=== PATIENT | female | born 1990 | race Caucasian/White ===

== ENCOUNTER 2016-12-13 19:02 | Emergency (ER) | payer OTHER ==
[~2016-12-13] VITALS: Ht 162.6 cm; Wt 49.6 kg
[~2016-12-13 19:02] MED LIST: AMITRIPTYLINE H25 MG PO; AMOXICILLIN500 MG; BENTYL10 MG PO; CARAFATE100 MG/ML; COLD MULTI SYM PO; DEPO-PROVER150 MG/ML IM; DICYCLOMINE HCL20 MG PO; DILAUDID2 MG PO; FLEXERIL5 MG PO; GRALISE300 MG PO; HYDROCODON-ACE1 EACH; IBUPROFEN800 MG; IBUPROFEN800 MG PO; INDOCIN25 MG PO; LYRICA150 MG PO; MIRALAX255 GM PO; OPANA ER10 MG PO; PERCOCET 10/1 TABLET PO; PERCOCET 5/31 TABLET PO; PREDNISONE20 MG PO; PRENATAL TABLE1 EAC3 PO; PRENATAL1 EACH PO; RANITIDINE HCL300 MG PO; REGLAN10 MG PO; VALIUM5 MG PO; VENTOLIN HFA18 GM IH; VICODIN,LORT1 TABLET PO; ZITHROMAX Z-PA250 MG PO; ZOFRAN4 MG PO
[2016-12-13 20:21] LABS: HEMATOCRIT 44.3 % (36.0-46.0); MCH 28.7 PG (29.0-34.0); MCHC 33.6 G/DL (30.0-36.0); MCV 85.4 FL (83-99); MEAN PLAT.VOLUME 12.2 uM^3 (9.5-12.4); PLATELET COUNT 250 K/uL (156-360); RBC DIS.WIDTH-CV 14.5 % (11.8-14.6); RBC DIS.WIDTH-SD 44.8 % (39-53); RED BLOOD COUNT 5.19 M/uL (3.80-5.20); WHITE BLOOD COUNT 10.9 K/uL (4.1-10.2)
[2016-12-13 20:32] LABS: CHLORIDE 104 mEq/L (99-109); POTASSIUM 4.3 mEq/L (3.7-5.4); SODIUM 141 mEq/L (136-147)
[2016-12-13 20:35] LABS: GLUCOSE 99 mg/dL (70-99)
[2016-12-13 20:36] LABS: ANION GAP 11 MEQ/L (2-14); TOTAL BILIRUBIN 0.3 mg/dL (0.0-1.0)
[2016-12-13 20:38] LABS: ALKALINE PHOSPHATASE 64 IU/L (3-129); GFR ESTIMATE (CALCULATED) > 59 mL/min/
[2016-12-13 20:39] LABS: UREA NITROGEN (BUN) 9 mg/dL (9-23)
[2016-12-13 20:48] LABS: QUANTITATIVE HCG < 4.0 MIU/ML
[2016-12-13 22:48] LABS: ADD MIUA? YES; BILIRUBIN NEGATIVE; BLOOD NEGATIVE; COLOR YELLOW ((YELLOW)); GLUCOSE (STRIP) NEGATIVE; KETONES NEGATIVE; LEUKOCYTES NEGATIVE; NITRITE NEGATIVE; PH, URINE 6.5 (5-8); PROTEIN (STRIP) NEGATIVE; SPECIFIC GRAVITY 1.025 (1.000-1.030)
[2016-12-13 23:32] LABS: LIPASE 41 U/L (1.0-51.0)
[2016-12-13 23:44] LABS: CASTS NONE SEEN /LPF; EPITHELIAL CELLS 4+; MUCUS 4+
[2016-12-13 23:47] LABS: BACTERIA 4+; CRYSTALS NONE SEEN; RED BLOOD CELLS NONE SEEN /HPF (0-5); UCUL ADDED? YES; WHITE BLOOD CELLS 0-5 /HPF (0-5)
[2016-12-14] MEDS ORDERED: MIRALAX255 GM PO (00:50)
[2016-12-14] MEDS ORDERED: BENTYL20 MG PO (00:54)
[2016-12-14 01:37] VITALS: BP 104/67
== END 2016-12-14 01:39 | disposition home or self-care (01) ==
LOC: RME 19:02 → EME 19:02 → RME 12-14 01:39
DX: K59.00 Constipation, unspecified (principal); R10.9 Unspecified abdominal pain; G89.29 Other chronic pain; F17.200 Nicotine dependence, unspecified, uncomplicated
CPT/HCPCS: 74022; 80053; 81003; 83690; 84702; 85027; 87086; 99281; 99284; J2060; J3010

== ENCOUNTER 2017-02-21 15:23 | Emergency (ER) | payer OTHER ==
[~2017-02-21] VITALS: Ht 162.6 cm; Wt 52.0 kg
[~2017-02-21 15:23] MED LIST changes: +BENTYL20 MG PO
[2017-02-21 16:14] LABS: MCH 27.9 PG (29.0-34.0); MCHC 33.6 G/DL (30.0-36.0); MCV 83.2 FL (83-99); RBC DIS.WIDTH-CV 13.4 % (11.8-14.6); RBC DIS.WIDTH-SD 40.8 % (39-53); RED BLOOD COUNT 5.05 M/uL (3.80-5.20); WHITE BLOOD COUNT 7.7 K/uL (4.1-10.2)
[2017-02-21 16:25] LABS: CHLORIDE 109 mEq/L (99-109); POTASSIUM 3.6 mEq/L (3.7-5.4); SODIUM 139 mEq/L (136-147)
[2017-02-21 16:27] LABS: GLUCOSE 82 mg/dL (70-99)
[2017-02-21 16:28] LABS: ANION GAP 8 MEQ/L (2-14)
[2017-02-21 16:30] LABS: GFR ESTIMATE (CALCULATED) > 59 mL/min/
[2017-02-21 16:31] LABS: UREA NITROGEN (BUN) 7 mg/dL (9-23)
[2017-02-21 17:18] LABS: PLAT.SUFFICIENCY ADEQUATE; PLATELET COUNT 243 K/uL (156-360)
[2017-02-21] MEDS ORDERED: METHADONE1 MG/1 ML PO (17:34)
[2017-02-21 17:50] LABS: TOTAL BILIRUBIN 0.6 mg/dL (0.0-1.0)
[2017-02-21 17:51] LABS: ALKALINE PHOSPHATASE 57 IU/L (3-129)
[2017-02-21 17:54] LABS: DIRECT BILIRUBIN 0.2 mg/dL (0.0-0.3)
[2017-02-21 17:55] LABS: LIPASE 22 U/L (1.0-51.0)
[2017-02-21 17:58] LABS: ADD MIUA? YES; BILIRUBIN NEGATIVE; BLOOD NEGATIVE; COLOR YELLOW ((YELLOW)); GLUCOSE (STRIP) NEGATIVE; KETONES NEGATIVE; LEUKOCYTES TRACE; NITRITE NEGATIVE; PROTEIN (STRIP) 30; SPECIFIC GRAVITY 1.013 (1.000-1.030); UROBILINOGEN 0.2 MG/DL (0.2-1.0)
[2017-02-21 18:01] LABS: QUANTITATIVE HCG < 4.0 MIU/ML
[2017-02-21] MEDS ORDERED: MIRALAX255 GM PO (18:39)
[2017-02-21] MEDS ORDERED: BENTYL20 MG PO (18:39)
[2017-02-21] MEDS ORDERED: STOOL SOFTENER240 MG PO (18:39)
[2017-02-21 18:42] LABS: BACTERIA 1+ /HPF; EPITHELIAL CELLS 1+ /HPF; MUCUS NONE SEEN /LPF; RED BLOOD CELLS 0-5 /HPF (0-5); UCUL ADDED? NO; WHITE BLOOD CELLS 0-5 /HPF (0-5)
[2017-02-21 19:27] VITALS: BP 108/69
== END 2017-02-21 19:28 | disposition home or self-care (01) ==
LOC: EME 15:23
DX: K59.00 Constipation, unspecified (principal); R06.02 Shortness of breath; Z79.891 Long term (current) use of opiate analgesic; F17.200 Nicotine dependence, unspecified, uncomplicated
CPT/HCPCS: 74000; 80048; 80076; 81003; 83690; 84702; 85027; 99281; 99284

== ENCOUNTER 2017-04-15 22:18 | Emergency (ER) | payer OTHER ==
[~2017-04-15] VITALS: Ht 162.6 cm; Wt 54.8 kg
[~2017-04-15 22:18] MED LIST changes: +METHADONE1 MG/1 ML PO; +STOOL SOFTENER240 MG PO
[2017-04-16] MEDS ORDERED: PERCOCET 5/31 TABLET PO (01:40)
[2017-04-16] MEDS ORDERED: MOTRIN800 MG PO (01:40)
[2017-04-16 02:15] VITALS: BP 107/74
== END 2017-04-16 02:15 | disposition home or self-care (01) ==
LOC: EME 22:18 → EXP 22:18
DX: S63.92XA Sprain of unspecified part of left wrist and hand, initial encounter (principal); S40.012A Contusion of left shoulder, initial encounter; W17.2XXA Fall into hole, initial encounter; W22.8XXA Striking against or struck by other objects, initial encounter
CPT/HCPCS: 73030; 73130; 99281; 99284

== ENCOUNTER 2017-07-03 12:38 | Emergency (ER) | payer OTHER ==
[~2017-07-03] VITALS: Ht 162.6 cm; Wt 56.9 kg
[~2017-07-03 12:38] MED LIST changes: +MOTRIN800 MG PO
[2017-07-03 13:22] LABS: HEMATOCRIT 44.1 % (36.0-46.0); MCH 27.9 PG (29.0-34.0); MCHC 33.3 G/DL (30.0-36.0); MCV 83.8 FL (83-99); RBC DIS.WIDTH-CV 13.5 % (11.8-14.6); RBC DIS.WIDTH-SD 41.8 % (39-53); RED BLOOD COUNT 5.26 M/uL (3.80-5.20); WHITE BLOOD COUNT 7.5 K/uL (4.1-10.2)
[2017-07-03 13:22] LABS: ADD MIUA? YES; BILIRUBIN NEGATIVE; BLOOD NEGATIVE; COLOR YELLOW ((YELLOW)); GLUCOSE (STRIP) NEGATIVE; KETONES NEGATIVE; LEUKOCYTES TRACE; NITRITE NEGATIVE; PROTEIN (STRIP) 30; SPECIFIC GRAVITY 1.018 (1.000-1.030); UROBILINOGEN 0.2 MG/DL (0.2-1.0)
[2017-07-03 13:33] LABS: CHLORIDE 103 mEq/L (99-109); POTASSIUM 3.9 mEq/L (3.7-5.4); SODIUM 137 mEq/L (136-147)
[2017-07-03 13:35] LABS: GLUCOSE 81 mg/dL (70-99)
[2017-07-03 13:37] LABS: ANION GAP 7 MEQ/L (2-14); TOTAL BILIRUBIN 0.3 mg/dL (0.0-1.0)
[2017-07-03 13:39] LABS: ALKALINE PHOSPHATASE 62 IU/L (3-129); GFR ESTIMATE (CALCULATED) > 59 mL/min/
[2017-07-03 13:40] LABS: UREA NITROGEN (BUN) 10 mg/dL (9-23)
[2017-07-03 13:42] LABS: LIPASE 20 U/L (1.0-51.0)
[2017-07-03 13:48] LABS: TROP-I INTERPRETATION NEGATIVE; TROPONIN-I < 0.01 ng/mL (0.0-0.30)
[2017-07-03 13:49] LABS: QUANTITATIVE HCG < 4.0 MIU/ML
[2017-07-03 14:01] LABS: MEAN PLAT.VOLUME 10.6 uM^3 (9.5-12.4); PLAT.SUFFICIENCY ADEQUATE; PLATELET COUNT 263 K/uL (156-360)
[2017-07-03 14:22] LABS: BACTERIA RARE /HPF; CASTS NONE SEEN /LPF; EPITHELIAL CELLS 1+ /HPF; MUCUS 2+ /LPF; RED BLOOD CELLS RARE /HPF (0-5); UCUL ADDED? NO; WHITE BLOOD CELLS 0-5 /HPF (0-5)
[2017-07-03 15:51] LABS: TROP-I INTERPRETATION NEGATIVE; TROPONIN-I < 0.01 ng/mL (0.0-0.30)
[2017-07-03 16:27] VITALS: BP 112/68
== END 2017-07-03 16:29 | disposition home or self-care (01) ==
LOC: EME 12:38
PROVIDERS: Physician Assistant Medical
DX: R07.9 Chest pain, unspecified (principal); R10.9 Unspecified abdominal pain; F17.200 Nicotine dependence, unspecified, uncomplicated
CPT/HCPCS: 71020; 80053; 81003; 83690; 84484; 84702; 85027; 93005; 99281; 99285; J1885; J3010; J7030